=== PATIENT | male | born 1955 | race Caucasian/White ===

== ENCOUNTER → 2017-07-09 | Outpatient (CLI) | payer OTHER, BC ==
[~2017-07-09] MED LIST: ACIT1CAP PO; ATEN50TA8 PO; ATOR-22 PO; NAPR1TAB9 PO; OMEG10007 PO
[2017-07-09 13:13] LABS: BASO % 0.3 %; BASO ABS # 0.02 K/uL (0-0.2); COMPLETE YES; EOS % 2.8 %; HEMATOCRIT 43.9 % (42-52); IG% 0.3 %; LYMPH % 28.3 %; LYMPH ABS # 2.15 K/uL (1.2-3.4); MEAN CELL VOLUME 90.7 fL (80-100); MEAN CORPUSCULAR HEMOGLOBIN 30.4 pg (25-34); MEAN CORPUSCULAR HGB CONC 33.5 g/dl (32-36); MEAN PLATELET VOLUME 10.3 fL (7.4-10.4); MONO % 11.3 %; PLATELET COUNT 202 K/uL (130-400); RED BLOOD COUNT 4.84 M/uL (4.7-6.1); WHITE BLOOD COUNT 7.61 K/uL (4.8-10.8)
--- NOTE | 2017-07-09 13:24 | DIAGNOSTIC IMAGING REPORT ---
CHEST 2 VIEWS ROUTINE CLINICAL HISTORY: Preoperative chest COMPARISON STUDY: No previous studies for comparison. FINDINGS: The cardiac and mediastinal contours are normal. There is no focal pulmonary consolidation. There is no failure. There are no pleural effusions. Degenerative changes are present within the spine. There are postsurgical changes within the lumbar spine.[ IMPRESSION: No active disease in the chest. Electronically signed by: Rhett Dennis M.D. 07/09/2017 1:22 PM Dictated Date/Time: 07/09/2017 1:14 PM
[2017-07-09 13:43] LABS: BLOOD UREA NITROGEN 20 mg/dl (7-18); BUN/CREATININE RATIO 21.8 (10-20); CALCIUM 9.6 mg/dl (8.5-10.1); CARBON DIOXIDE 28 mmol/L (21-32); CHLORIDE 105 mmol/L (98-107); CREATININE 0.93 mg/dl (0.60-1.40); GLUCOSE 104 mg/dl (70-99); POTASSIUM 4.1 mmol/L (3.5-5.1); SODIUM 141 mmol/L (136-145)
== END | disposition home or self-care (01) ==
LOC: C.LAB 12:14
PROVIDERS: ATTEND Orthopaedic Surgery
DX: M75.121 Complete rotator cuff tear or rupture of right shoulder, not specified as traumatic (principal)